=== PATIENT | male | born 1960 | race Caucasian/White ===

== ENCOUNTER 2020-12-19 17:40 | Emergency (ER) | payer OTHER, MEDICAID ==
--- NOTE | 2020-12-19 17:50 | ED Physician Documentation ---
History of Present Illness - Stated complaint Stated Complaint: FIT FOR - Chief complaint Chief Complaint: General - History obtained from History obtained from: Patient, Police - Additonal information Additional information: He was arrested about 2 and half hours ago, in the process of arrest did hit his head but he has no complaints except for chronic neck pain. Police noticed a mass on the top of his head and was worried that it was traumatic but the patient states that it has been there for many years without change. Review of Systems Constitutional: denies: Fever, Chills Nose: denies: Rhinorrhea / runny nose, Congestion, Epistaxis Cardiac: reports: Reviewed and negative Respiratory: reports: Reviewed and negative PD ED PE NORMAL - Vitals Vital signs reviewed: Yes - General General: Alert and oriented X 3, No acute distress - HEENT HEENT: PERRL, EOMI, Other (There is a firm skull base mass on the top of the head. Its not tender, nonmobile and does not feel at all acute.) - Neck Neck: No bony TTP - Neuro Neuro: Alert and oriented X 3, manager apple 2-12 intact, No motor deficit, No sensory deficit, Normal speech Results - Vitals Vitals: Vital Signs - 24 hr 12/19/20 17:40 Temperature 36.6 C Heart Rate 80 Respiratory 16 Rate Blood Pressure 170/103 H O2 Saturation 99 Oxygen O2 Source Room air PD MEDICAL DECISION MAKING - ED course ED course: He has a chronic mass on the top of his head that was noticed incidentally. No evidence of head injury. He is clear for discharge to alf. Departure - Departure Disposition: 01 Home, Self Care Clinical Impression: Subcutaneous mass Condition: Good Record reviewed to determine appropriate education?: Yes Comments: The mass on his scalp looks chronic. Routine follow-up with alf nurse practitioner or after release depending on how long he is incarcerated. Recommend routine alcohol withdrawal precautions while in alf. I notified Aidee Hull by phone.
[2020-12-19 17:58] VITALS: BP 145/88
== END 2020-12-19 18:00 | disposition home or self-care (01) ==
LOC: ED 17:40
DX: R22.0 Localized swelling, mass and lump, head (principal)
CPT/HCPCS: 99281